=== PATIENT | female | born 1940 | race Caucasian/White ===

== ENCOUNTER 2021-09-30 10:29 | Outpatient (CLI) | payer MEDICARE, OTHER ==
[~2021-09-30] VITALS: Ht 160.1 cm; Wt 86.0 kg
[2021-09-30] VITALS (10 sets, daily range): BP systolic 140–181; BP diastolic 54–69; PULSE 57–67; TEMP 97.9
[2021-09-30 11:39] LABS: HEMOGLOBIN 10.6 g/dl (12.5-16.0); MEAN CELL VOLUME 80 fl (80.0-100.0); MEAN CORPUSCULAR HEMOGLOBIN 24 pg (27-31); MEAN CORPUSCULAR HGB CONC 30 g/dl (33.0-37.0); MEAN PLATELET VOLUME 9.1 fl (7.4-10.4); PLATELET COUNT 246 K/mm3 (130-400); RED BLOOD COUNT 4.38 M/mm3 (4.10-5.30); REDCELL DISTRIBUTION WIDTH-CV 19.2 % (11.5-14.5)
[2021-09-30 11:49] LABS: INR 1.1 (0.8-3.0); PROTHROMBIN TIME 12.6 SECONDS (9.7-12.8)
[2021-09-30 11:51] LABS: PARTIAL THROMBOPLASTIN TIME 32.7 SECONDS (26.0-37.0)
[2021-09-30 11:53] LABS: HEMATOCRIT 34.9 % (37.0-47.0)
[2021-09-30] MEDS ORDERED: HCTZ 25MG TAB25 MG PO (11:53)
[2021-09-30 11:54] LABS: CALCIUM 10.4 mg/dL (8.4-10.2); CREATININE, serum 1.49 mg/dL (0.57-1.11)
[2021-09-30] MEDS ORDERED: SYNTHROID0.1 MG/TAB PO (11:54)
[2021-09-30] MEDS ORDERED: XYZAL5 MG PO (11:54)
[2021-09-30] MEDS ORDERED: DITROPAN XL10 MG PO (11:55)
[2021-09-30] MEDS ORDERED: ZOCOR 20MG20 MG PO (11:55)
[2021-09-30] MEDS ORDERED: COUMADIN 77.5 MG/TAB PO (11:56)
[2021-09-30] MEDS ORDERED: ASPIRIN 81M81 MG/TA2 PO (11:58)
--- NOTE | 2021-09-30 12:47 | NUR ---
Pt to procedure.
[2021-09-30] MEDS ORDERED: NORVASC 5MG5 MG/TAB PO (14:35)
[2021-09-30] MEDS ORDERED: LASIX 20MG TABL20 MG PO (14:37)
[2021-09-30] MEDS ORDERED: COREG 3.123.125 MG/T PO (14:44)
--- NOTE | 2021-09-30 17:17 | NUR ---
Discharge instructions given to pt.Pt verbalizes understanding.INT removed,catheter tip intact.Dressing observed clean,dry,intact,soft to touch.Pt escorted out via wheelchair by this nurse.
== END 2021-09-30 17:20 ==
LOC: COL.CAR 10:29 → COL.RAD 11:00 → COL.CAR 17:20
PROVIDERS: Internal Medicine Cardiovascular Disease
DX: I25.10 Atherosclerotic heart disease of native coronary artery without angina pectoris (principal); I08.3 Combined rheumatic disorders of mitral, aortic and tricuspid valves
CPT/HCPCS: C1769; J0330; J0461; J1644; J2250; J2370; J2704; J3010; Q9967

== ENCOUNTER → 2021-10-13 | Outpatient (CLI) | payer MEDICARE, OTHER ==
[~2021-10-13] MED LIST: ASPIRIN 81M81 MG/TA2 PO; COREG 3.123.125 MG/T PO; COUMADIN 77.5 MG/TAB PO; DITROPAN XL10 MG PO; HCTZ 25MG TAB25 MG PO; LASIX 20MG TABL20 MG PO; NORVASC 5MG5 MG/TAB PO; SYNTHROID0.1 MG/TAB PO; XYZAL5 MG PO; ZOCOR 20MG20 MG PO
== END ==
LOC: COL.RAD 10-10 12:30
DX: R06.02 Shortness of breath (principal)
CPT/HCPCS: A9540; A9567